=== PATIENT | male | born 1990 | race Caucasian/White ===

== ENCOUNTER 2024-04-03 18:44 | Emergency (ER) | payer MEDICAID, SELFPAY ==
--- NOTE | ~2024-04-03 | CT_ITS ---
EXAMINATION: CT HEAD WITHOUT CONTRAST CT CERVICAL SPINE WITHOUT CONTRAST CLINICAL INFORMATION: Fall. COMPARISON: None. TECHNIQUE: Contiguous axial imaging was performed from the skullbase to vertex without intravenous administration of contrast. Multidetector helical imaging was performed through the cervical spine. This CT examination was performed using dose optimization techniques as appropriate, variously including the following: *Automated exposure control *Adjustment of mA and/or kV according to patient size (this includes techniques or standardized protocols for targeted exams where dose is matched to indication/reason for exam; i.e. extremities or head) *Use of iterative reconstruction technique DLP: 1212 mGy-cm. FINDINGS: HEAD: There is no evidence of acute intracranial hemorrhage or territorial infarction. No abnormal mass effect or midline shift is seen. Hui to white matter differentiation is well preserved. No extra-axial fluid collections are identified. The ventricles are normal in size. Brain parenchymal attenuation is normal. The osseous structures and soft tissues are normal. The mastoid air cells and visualized portions of the paranasal sinuses are well aerated. CERVICAL SPINE: No acute fracture or subluxation is identified in the cervical spine. The disc spaces are maintained. No large disc protrusion is noted. The atlantoaxial articulation is normally maintained. The paraspinal soft tissues are normal. The lung apices are clear. CT/CT head/brain wo IV con IMPRESSION: 1. No acute intracranial pathology. 2. No evidence of acute cervical spine traumatic injury. Electronically signed by: Valerio Barahona MD 04/03/2024 08:30 PM EDT
--- NOTE | ~2024-04-03 | CT_ITS ---
EXAMINATION: CT HEAD WITHOUT CONTRAST CT CERVICAL SPINE WITHOUT CONTRAST CLINICAL INFORMATION: Fall. COMPARISON: None. TECHNIQUE: Contiguous axial imaging was performed from the skullbase to vertex without intravenous administration of contrast. Multidetector helical imaging was performed through the cervical spine. This CT examination was performed using dose optimization techniques as appropriate, variously including the following: *Automated exposure control *Adjustment of mA and/or kV according to patient size (this includes techniques or standardized protocols for targeted exams where dose is matched to indication/reason for exam; i.e. extremities or head) *Use of iterative reconstruction technique DLP: 1212 mGy-cm. FINDINGS: HEAD: There is no evidence of acute intracranial hemorrhage or territorial infarction. No abnormal mass effect or midline shift is seen. Hui to white matter differentiation is well preserved. No extra-axial fluid collections are identified. The ventricles are normal in size. Brain parenchymal attenuation is normal. The osseous structures and soft tissues are normal. The mastoid air cells and visualized portions of the paranasal sinuses are well aerated. CERVICAL SPINE: No acute fracture or subluxation is identified in the cervical spine. The disc spaces are maintained. No large disc protrusion is noted. The atlantoaxial articulation is normally maintained. The paraspinal soft tissues are normal. The lung apices are clear. CT/CT cervical spine wo IV con IMPRESSION: 1. No acute intracranial pathology. 2. No evidence of acute cervical spine traumatic injury. Electronically signed by: Valerio Barahona MD 04/03/2024 08:30 PM EDT
--- NOTE | 2024-04-03 18:45 | PC.NURSE ---
melissa from [facility] s/p fall. pt was sitting in a chair - fell/hit his head when he slipped from the seat. -loc, -thinners. pt c/o 10/10 SAMANO, dizziness/lightheadedness. denies change in vision/n/v. pt a&ox4 upon ED arrival. vss and up to date. pt changed over by security - belongings placed in closet between main ED/pod. pt seems to be resting in no apparent distress. waiting for CT to be completed. no sob/wob noted. respirations even/unlabored. plan of care ongoing.
[2024-04-03 18:59] VITALS: BP 110/70; PULSE 74; RESP 16; TEMP 36.4; O2SAT 98
[2024-04-03 19:26] LABS: MANUAL DIFF FLAG NO
[2024-04-03 19:28] LABS: Basophils Absolute Auto 0.1 X10*3/uL (0.0-0.2); Basophils Percent Auto 0.7 % (0-2); Eosinophils Absolute Auto 0.3 X10*3/uL (0.0-0.4); Eosinophils Percent Auto 4.8 % (0-4); Hematocrit 40.5 % (42.0-52.0); Hemoglobin 14.7 g/dl (14.0-18.0); Imm Gran Abs Auto 0.01 X10*3/uL (0.00-0.03); Imm Gran Pct Auto 0.1 % (0.0-0.4); Lymphocytes Absolute Auto 2.7 X10*3/uL (1.2-4.9); Lymphocytes Percent Auto 39.4 % (20-40); Mean Corpuscular HGB Conc 36.3 g/dl (31.0-36.0); Mean Corpuscular Hemoglobin 34.3 pg (27.0-33.0); Mean Corpuscular Volume 94.4 fL (80.0-98.0); Mean Platelet Volume 9.5 fL (9.4-12.4); Monocytes Absolute Auto 0.5 X10*3/uL (0.1-1.2); Neutrophils Absolute Auto 3.3 x10*3/uL (2.0-8.3); Platelet Count 195 X10*3/uL (160-400); Red Blood Count 4.29 X10*6/uL (4.60-5.80); Red Cell Distribution Width 12.3 % (11.0-16.0); White Blood Count 6.9 X10*3/uL (4.8-10.8)
[2024-04-03 19:48] LABS: Alanine Aminotransferase 153 U/L (0-40); Albumin Level 3.7 g/dL (3.5-5.0); Alkaline Phosphatase 56 U/L (39-117); Anion Gap 12 (12-20); Aspartate Amino Transferase 61 U/L (5-37); Bilirubin Total 0.4 mg/dL (0.0-1.0); Blood Urea Nitrogen 14 mg/dL (9-16); Calcium 9.1 mg/dL (8.4-10.2); Carbon Dioxide 28 mmol/L (22-29); Chloride 106 mmol/L (96-108); Creatinine Clr Calc Pharmacy 131.5; Estimated Glomerular Filt Rate > 60; Glucose Random 86 mg/dL (60-115); Potassium 4.5 mmol/L (3.3-5.1); Sodium 141 mmol/L (135-145); Total Protein 6.3 g/dL (6.5-8.0)
--- NOTE | 2024-04-03 20:47 | PC.NURSE ---
report given to CARLIN Siegel at [facility] at this time. medical office secretary notified/aware that transportation is needed as [facility] does not provide transportation serves back to facility. plan of care ongoing.
[2024-04-03] MEDS: Metoclopramide HCl 10 MG TABLET PO (21:11)
[2024-04-03] MEDS: Acetaminophen 325 MG TABLET 650 MG PO (21:12)
[2024-04-03] MEDS: Ibuprofen 600 MG TABLET PO (21:12)
--- NOTE | 2024-04-03 21:12 | PC.NURSE ---
pt medicated per provider order. effectiveness pending. pt waiting for transportation back to [facility] via [facility] at this time. plan of care ongoing.
--- NOTE | 2024-04-03 21:18 | ED.GENADULT ---
HPI - General Adult General Chief complaint: Fall Stated complaint: FALL, +HEAD STRIKE,HEADACHE X 3DAYS Time Seen by Provider: 04/03/24 19:15 History of Present Illness ED Provider: Ifeanyi LOPEZ narrative: 33-year-old male with past medical history of benzo abuse and alcohol abuse presenting for head pain. Patient suffered a fall earlier this evening when he was leaning over on a chair. He denies LOC however he isn't complaining of left-sided head pain. He denies chest pain, shortness of breath, abdominal pain, nausea, vomiting. Patient denies recent drug use/alcohol use and denies SI/HI Related Data Allergies Allergy/AdvReac Type Severity Reaction Status Date / Time No Known Allergies Allergy Verified 04/03/24 18:58 Review of Systems Review of Systems: Head pain Patient denies chest pain, shortness of breath, abdominal pain, nausea, vomiting, urinary PMFSH Past Medical History Attestation statement: The following information was validated with the patient. PMFSH Narrative: Patient states he has history of benzo use and alcohol use Source: other Social History Social History Smoked in Last 30 Days: No Use of substances other than those prescribed or required for medical reasons: No Advance Directives: No Advance Directives Information Provided: No Do you have a plan to hurt others: No Plan Physical Exam ED Vital Signs: Vital Signs - 24 hr 04/03/24 18:59 Temperature 97.6 F Pulse Rate 74 Respiratory Rate 16 Blood Pressure 110/70 Pulse Oximetry 98 Oxygen Delivery Method Room Air BMI result Body Mass Index 30.0 Medications Administered Discontinued Medications Generic Name Dose Route Start Last Admin Trade Name Bar PRN Reason Stop Dose Admin Acetaminophen 650 mg 04/03/24 20:38 04/03/24 21:12 Acetaminophen 325 Mg Tablet PO 04/03/24 20:39 650 mg ONCE ONE Administration Ibuprofen 600 mg 04/03/24 20:38 04/03/24 21:12 Ibuprofen 600 Mg Tablet PO 04/03/24 20:39 600 mg ONCE ONE Administration Metoclopramide HCl 10 mg 04/03/24 20:48 04/03/24 21:11 Metoclopramide Hcl 10 Mg Tablet PO 04/03/24 20:49 10 mg ONCE ONE Administration Medical Decision Making Medical Decision Making MDM Narrative: Young male presenting for fall with head strike. He is not on thinners and I have minimal concern for traumatic head/neck injury. Patient states he has been experiencing headaches concerning for migraine. I gave him a migraine cocktail and ordered head imaging that was negative traumatic head bleed/neck fracture. I discharge patient back to his rehab facility the return precautions and concussion information Differential Diagnosis Differential Diagnoses: The differential diagnosis associated with the presentation includes Concussion, migraine, tension head, soft tissue injury Lab Data 04/03/24 19:24 04/03/24 19:24 Labs: Lab Results 04/03/24 Range/Units 19:24 WBC 6.9 (4.8-10.8) X10*3/uL RBC 4.29 L (4.60-5.80) X10*6/uL Hgb 14.7 (14.0-18.0) g/dl Hct 40.5 L (42.0-52.0) % MCV 94.4 (80.0-98.0) fL MCH 34.3 H (27.0-33.0) pg MCHC 36.3 H (31.0-36.0) g/dl RDW 12.3 (11.0-16.0) % Plt Count 195 (160-400) X10*3/uL MPV 9.5 (9.4-12.4) fL Immature Gran % (Auto) 0.1 (0.0-0.4) % Neut % (Auto) 48.0 (45-73) % Lymph % (Auto) 39.4 (20-40) % [place] % (Auto) 7.0 (2-11) % Eos % (Auto) 4.8 H (0-4) % Baso % (Auto) 0.7 (0-2) % Lymph # (Auto) 2.7 (1.2-4.9) X10*3/uL [place] # (Auto) 0.5 (0.1-1.2) X10*3/uL Eos # (Auto) 0.3 (0.0-0.4) X10*3/uL Baso # (Auto) 0.1 (0.0-0.2) X10*3/uL Abs Immat Gran (auto) 0.01 (0.00-0.03) X10*3/uL Absolute Neuts (auto) 3.3 (2.0-8.3) x10*3/uL Absolute Nucleated RBC 0.000 (0.0-0.012) X10*3/uL Nucleated RBC % (auto) 0.0 (0.0-0.2) /100WBC Sodium 141 (135-145) mmol/L Potassium 4.5 (3.3-5.1) mmol/L Chloride 106 (96-108) mmol/L Carbon Dioxide 28 (22-29) mmol/L Anion Gap 12 (12-20) BUN 14 (9-16) mg/dL Creatinine 0.96 (0.5-1.4) mg/dL Estim Creat Clear Calc 131.5 Estimated GFR > 60 Random Glucose 86 (60-115) mg/dL Calcium 9.1 (8.4-10.2) mg/dL Total Bilirubin 0.4 (0.0-1.0) mg/dL AST 61 H (5-37) U/L ALT 153 H (0-40) U/L Alkaline Phosphatase 56 (39-117) U/L Total Protein 6.3 L (6.5-8.0) g/dL Albumin 3.7 (3.5-5.0) g/dL Independent Interpretation I performed an independent interpretation of an: CT Scan Interpretation: Did not appreciate a large head bleed Radiology Impression Discussion of test interpretation with radiology: I have reviewed the radiologist's reading. Radiologist Impression: Negative for acute head injury/neck injury Discharge Plan Discharge Clinical Impression: Head pain Patient Disposition: Xfer Inpatient Rehab Fac Transfer Details: [facility] Instructions: Concussion (ED) Additional Instructions: You can take Tylenol and for ibuprofen for your head pain Please review the concussion information in your discharge paperwork If you develop any new or worsening symptoms please seek immediate medical attention or return to this emergency department Print Language: Croatian
[2024-04-03 21:27] VITALS: BP 110/70; PULSE 74; RESP 16; TEMP 36.4; O2SAT 98
--- NOTE | 2024-04-03 21:27 | PC.NURSE ---
report given to la WONG at this time. pt leaving facility.
== END 2024-04-03 21:28 ==
PROVIDERS: Emergency Provider Student in an Organized Health Care Education/Training Program
DX: R51.9 Headache, unspecified (principal); Z91.81 History of falling
CPT/HCPCS: 36415; 70450; 72125; 80053; 85025; 99284